=== PATIENT | female | born 1970 | race American Indian/Alaskan Native ===

== ENCOUNTER 2022-01-30 19:12 | Emergency (ER) | payer SELFPAY ==
[2022-01-30 19:31] VITALS: BP 137/95
--- NOTE | 2022-01-31 14:09 | Electrocardiograph Report ---
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
== END 2022-01-31 08:22 | disposition left against medical advice (07) ==
LOC: ED 19:12
DX: R07.9 Chest pain, unspecified (principal); Z53.21 Procedure and treatment not carried out due to patient leaving prior to being seen by health care provider
CPT/HCPCS: 93005